=== PATIENT | female | born 1955 | race Hispanic/Latino ===

== ENCOUNTER 2021-11-05 18:02 | Inpatient (IN) | payer OTHER ==
[~2021-11-05] VITALS: Ht 157.5 cm; Wt 63.5 kg
[2021-11-05] MEDS ORDERED: DONNATAL/LIDOCAINE/MAALOX 30 ML SUSP PO SCH (18:15)
[2021-11-05 18:27] LABS: BASOPHILS # (AUTO) 0.1 (0.0-0.1); BASOPHILS % 0.6 % (0.0-1.0); EOSINOPHILS # (AUTO) 0.2 (0.0-0.4); EOSINOPHILS % 1.8 % (0.0-6.0); HEMATOCRIT 42.3 % (34.2-44.1); HEMOGLOBIN 13.6 g/dL (12.0-16.0); LYMPHOCYTES # (AUTO) 2.1 (1.0-3.2); LYMPHOCYTES % 20.6 % (18.0-39.1); MEAN CORPUSCULAR HEMOGLOBIN 31.6 pg (28-32); MEAN CORPUSCULAR HGB CONC 32.2 g/dL (31-35); MEAN CORPUSCULAR VOLUME 98.1 fL (81-99); MONOCYTES # (AUTO) 0.5 (0.2-0.8); MONOCYTES % 5.2 % (4.4-11.3); NEUTROPHILS # (AUTO) 7.3 (2.1-6.9); NEUTROPHILS % 71.4 % (38.7-80.0); PLATELET COUNT 263 x10e3/uL (140-360); RED BLOOD COUNT 4.31 x10e6/uL (3.6-5.1); RED CELL DISTRIBUTION WIDTH 12.8 % (11.7-14.4)
[2021-11-05 18:46] LABS: ALBUMIN 4.1 g/dL (3.5-5.0); ALBUMIN/GLOBULIN RATIO 1.2 (0.8-2.0); ANION GAP 17.6 mmol/L (8-16); CALCIUM 9.4 mg/dL (8.4-10.2); CREATININE, SERUM 0.73 mg/dL (0.57-1.11); POTASSIUM 3.6 mmol/L (3.5-5.1)
[2021-11-05 19:19] LABS: CREATINE KINASE MB 10.3 ng/mL (0-5.0)
[2021-11-05] MEDS ORDERED: Morphine 4mg Syringe 4 MG/ML INJ IV PRN (19:30)
[2021-11-05] MEDS ORDERED: IOPAMIDOL 370 MG/ML 100 ML INFUS..BTL INJ ONE (20:02)
[2021-11-05] MEDS ORDERED: SODIUM CHLORIDE 0.9% 100 ML ONE (20:02)
[2021-11-05] MEDS ORDERED: ENOXAPARIN SOD INJ 60 MG/0.6 ML SYR SC STA (21:37)
[2021-11-05] MEDS ORDERED: ENOXAPARIN SOD INJ 60 MG/0.6 ML SYR SC ONE (21:43)
[2021-11-05] MEDS ORDERED: ASPIRIN 81 MG CHEW TAB PO ONE (23:15)
[2021-11-06] VITALS (8 sets, daily range): BP systolic 116–160; BP diastolic 69–88
[2021-11-06 00:37] LABS: CREATINE KINASE MB 64.3 ng/mL (0-5.0)
[2021-11-06 05:21] LABS: INR 0.87; PROTHROMBIN TIME 12.5 seconds (11.9-14.5)
[2021-11-06 05:22] LABS: PARTIAL THROMBOPLASTIN TIME 30.9 seconds (23.8-35.5)
[2021-11-06 05:35] LABS: CREATINE KINASE MB 71.8 ng/mL (0-5.0)
[2021-11-06] MEDS ORDERED: NITROGLYCERIN 2% OINT 1 GM PKT TOP ONE (06:30)
[2021-11-06] MEDS: NITROGLYCERIN 0.4 MG SUBL SL PRN ×2 (07:54→08:00)
[2021-11-06] MEDS ORDERED: HEPARIN SOD/SOD CHLORIDE 2,000 ML ONE (08:07)
[2021-11-06] MEDS ORDERED: IOPAMIDOL 370 MG/ML 100 ML INFUS..BTL INJ ONE (08:07)
[2021-11-06] MEDS ORDERED: LIDOCAINE HCL 2% LOCAL 20 ML VIAL ONE (08:07)
[2021-11-06] MEDS ORDERED: MIDAZOLAM HCL 2 MG/2 ML VIAL ONE (08:23)
[2021-11-06] MEDS ORDERED: HEPARIN SOD (PORCINE) 1000 UNIT/ML 30ML ONE (08:23)
[2021-11-06] MEDS ORDERED: NITROGLYCERIN/D5W 200 MCG/ML 250 ML ONE (08:24)
[2021-11-06] MEDS ORDERED: FENTANYL CITRATE/PF 100MCG/2 ML INJ ONE (08:24)
[2021-11-06] MEDS ORDERED: SODIUM CHLORIDE 0.9% 1000ML 1,000 ML ONE (08:24)
[2021-11-06] MEDS ORDERED: Morphine 4mg Syringe 4 MG/ML INJ IV PRN (08:45)
[2021-11-06 14:02] LABS: CREATINE KINASE MB 64.5 ng/mL (0-5.0)
[2021-11-06] MEDS ORDERED: ONDANSETRON HCL INJ 2MG/ML 2ML 2 MG/ML VIAL IV PRN (16:30)
[2021-11-06] MEDS: FAMOTIDINE 20 MG TAB PO SCH (16:30)
[2021-11-06] MEDS ORDERED: ONDANSETRON HCL INJ 2MG/ML 2ML 2 MG/ML VIAL ONE (16:39)
[2021-11-06] MEDS ORDERED: ATORVASTATIN 40 MG TAB PO SCH (21:00)
[2021-11-07] VITALS: BP 126/78
[2021-11-07] MEDS ORDERED: ACETAMINOPHEN 325 MG TAB PO PRN (01:00)
[2021-11-07 04:00] VITALS: BP 103/68
[2021-11-07 05:38] LABS: BASOPHILS # (AUTO) 0.1 (0.0-0.1); BASOPHILS % 0.5 % (0.0-1.0); EOSINOPHILS # (AUTO) 0.1 (0.0-0.4); EOSINOPHILS % 1.3 % (0.0-6.0); HEMATOCRIT 38.3 % (34.2-44.1); HEMOGLOBIN 12.1 g/dL (12.0-16.0); LYMPHOCYTES # (AUTO) 3.2 (1.0-3.2); LYMPHOCYTES % 30.9 % (18.0-39.1); MEAN CORPUSCULAR HEMOGLOBIN 31.3 pg (28-32); MEAN CORPUSCULAR HGB CONC 31.6 g/dL (31-35); MEAN CORPUSCULAR VOLUME 99.2 fL (81-99); MONOCYTES # (AUTO) 0.9 (0.2-0.8); MONOCYTES % 9.2 % (4.4-11.3); NEUTROPHILS # (AUTO) 5.9 (2.1-6.9); NEUTROPHILS % 57.8 % (38.7-80.0); PLATELET COUNT 215 x10e3/uL (140-360); RED BLOOD COUNT 3.86 x10e6/uL (3.6-5.1)
[2021-11-07 06:08] LABS: ANION GAP 12.6 mmol/L (8-16); CALCIUM 8.4 mg/dL (8.4-10.2); CREATININE, SERUM 0.67 mg/dL (0.57-1.11); POTASSIUM 3.6 mmol/L (3.5-5.1)
[2021-11-07 07:03] LABS: CHOL/HDL RATIO 4.1 (3.0-3.6)
[2021-11-07 07:23] LABS: THYROID STIMULATING HORMONE 2.443 uIU/mL (0.350-4.940)
[2021-11-07] MEDS: FAMOTIDINE 20 MG TAB PO SCH (07:30)
[2021-11-07 08:00] VITALS: BP 135/70
[2021-11-07] MEDS ORDERED: ASPIRIN 81 MG ENTERIC COATED PO SCH (09:00)
[2021-11-07] MEDS ORDERED: CLOPIDOGREL BISULFATE 75 MG TAB PO SCH (09:00)
[2021-11-07] MEDS ORDERED: METOPROLOL SUCCINATE 25 MG TAB XL PO SCH (09:00)
[2021-11-07 10:54] VITALS: BP 135/70
[2021-11-07 12:00] VITALS: BP 132/75
[2021-11-07] MEDS ORDERED: ECOTRIN81 MG PO (13:02)
[2021-11-07] MEDS ORDERED: LIPITOR20 MG PO (13:03)
[2021-11-07] MEDS ORDERED: PLAVIX75 MG PO (13:03)
[2021-11-07] MEDS ORDERED: TOPROL XL25 MG PO (13:03)
[2021-11-07] MEDS ORDERED: KEFLEX125 MG/5 M PO (13:04)
[2021-11-07] MEDS ORDERED: LOSARTAN POTAS100 MG PO (13:04)
== END 2021-11-07 13:48 | disposition home or self-care (01) | DRG 247 ==
LOC: ER 18:04 → ERHOLD 19:24 → MED/SURG 20:55 → OBSVTOIN 11-06 08:22
PROVIDERS: ADMIT Internal Medicine; ATTEND Internal Medicine
PROC: 027034Z Dilation of Coronary Artery, One Artery with Drug-eluting Intraluminal Device, Percutaneous Approach (ICD-10-PCS; principal; 2021-11-06)
PROC: 4A023N7 Measurement of Cardiac Sampling and Pressure, Left Heart, Percutaneous Approach (ICD-10-PCS; 2021-11-06)
PROC: B2151ZZ Fluoroscopy of Left Heart using Low Osmolar Contrast (ICD-10-PCS; 2021-11-06)
PROC: B2111ZZ Fluoroscopy of Multiple Coronary Arteries using Low Osmolar Contrast (ICD-10-PCS; 2021-11-06)
DX: I21.4 Non-ST elevation (NSTEMI) myocardial infarction (principal); I10 Essential (primary) hypertension; E78.5 Hyperlipidemia, unspecified; Z91.14 Patient's other noncompliance with medication regimen; I25.10 Atherosclerotic heart disease of native coronary artery without angina pectoris; Z20.822 Contact with and (suspected) exposure to COVID-19; I16.0 Hypertensive urgency; E11.65 Type 2 diabetes mellitus with hyperglycemia
CPT/HCPCS: 36415; 71045; 71275; 80048; 80053; 80061; 82550; 82553; 83036; 83880; 84443; 84484; 85025; 85610; 85730; 92920; 92928; 93005; 93306; 93458; 99152; 99153; 99285; C1725; C1760; C1769; C1874; C1887; C1894; G0378; J1644; J1650; J2001; J2250; J2270; J2405; J3010; J7030; J7050; Q9967; U0002

== ENCOUNTER 2021-11-21 11:05 | Inpatient (IN) | payer OTHER ==
[~2021-11-21] VITALS: Ht 157.5 cm; Wt 63.5 kg
[~2021-11-21 11:05] MED LIST: ECOTRIN81 MG PO; KEFLEX125 MG/5 M PO; LIPITOR20 MG PO; LOSARTAN POTAS100 MG PO; PLAVIX75 MG PO; TOPROL XL25 MG PO
[2021-11-21 11:29] LABS: BASOPHILS # (AUTO) 0.1 (0.0-0.1); EOSINOPHILS # (AUTO) 0.3 (0.0-0.4); HEMATOCRIT 42.7 % (34.2-44.1); HEMOGLOBIN 14.1 g/dL (12.0-16.0); LYMPHOCYTES # (AUTO) 2.1 (1.0-3.2); LYMPHOCYTES % 30.8 % (18.0-39.1); MEAN CORPUSCULAR HEMOGLOBIN 31.9 pg (28-32); MEAN CORPUSCULAR VOLUME 96.6 fL (81-99); MONOCYTES # (AUTO) 0.6 (0.2-0.8); MONOCYTES % 7.9 % (4.4-11.3); NEUTROPHILS # (AUTO) 3.9 (2.1-6.9); PLATELET COUNT 368 x10e3/uL (140-360); RED BLOOD COUNT 4.42 x10e6/uL (3.6-5.1); RED CELL DISTRIBUTION WIDTH 12.5 % (11.7-14.4)
[2021-11-21] MEDS ORDERED: NITROGLYCERIN 2% OINT 1 GM PKT TOP ONE (11:30)
[2021-11-21 11:41] LABS: INR 0.86; PROTHROMBIN TIME 12.5 seconds (11.9-14.5)
[2021-11-21 11:42] LABS: PARTIAL THROMBOPLASTIN TIME 29.8 seconds (23.8-35.5)
[2021-11-21 11:50] LABS: ALBUMIN 4.3 g/dL (3.5-5.0); ALBUMIN/GLOBULIN RATIO 1.2 (0.8-2.0); ANION GAP 12.9 mmol/L (8-16); CALCIUM 9.7 mg/dL (8.4-10.2); CREATININE, SERUM 0.66 mg/dL (0.57-1.11); POTASSIUM 3.9 mmol/L (3.5-5.1)
[2021-11-21 11:56] LABS: CREATINE KINASE MB 1.1 ng/mL (0-5.0)
[2021-11-21] MEDS ORDERED: ONDANSETRON HCL INJ 2MG/ML 2ML 2 MG/ML VIAL IV PRN (12:00)
[2021-11-21] MEDS ORDERED: Morphine 2mg Syringe 2 MG/ML SYR IV PRN (12:00)
[2021-11-21] MEDS: NITROGLYCERIN 2% OINT 1 GM PKT TOP SCH ×3 (12:00→23:45)
[2021-11-21 12:42] VITALS: BP 157/103
[2021-11-21] MEDS: ACETAMINOPHEN 325 MG TAB PO PRN ×2 (14:28→20:26)
[2021-11-21 14:34] VITALS: BP 157/103
[2021-11-21 14:39] VITALS: BP 157/103
[2021-11-21 16:00] VITALS: BP 118/78
[2021-11-21] MEDS: ENOXAPARIN SOD INJ 40 MG/0.4 ML SYR SC SCH (16:22)
[2021-11-21] MEDS: FAMOTIDINE 20 MG/2 ML VIAL IV SCH ×2 (16:22→20:08)
[2021-11-21 20:00] VITALS: BP 128/87
[2021-11-21] MEDS: ATORVASTATIN 40 MG TAB PO SCH (20:12)
[2021-11-21 20:28] VITALS: BP 128/87
[2021-11-22] VITALS (12 sets, daily range): BP systolic 111–142; BP diastolic 66–89
[2021-11-22] MEDS: NITROGLYCERIN 2% OINT 1 GM PKT TOP SCH ×3 (05:39→18:00)
[2021-11-22 06:16] LABS: BASOPHILS # (AUTO) 0.1 (0.0-0.1); BASOPHILS % 0.9 % (0.0-1.0); EOSINOPHILS # (AUTO) 0.4 (0.0-0.4); EOSINOPHILS % 4.9 % (0.0-6.0); HEMATOCRIT 40.3 % (34.2-44.1); HEMOGLOBIN 12.9 g/dL (12.0-16.0); LYMPHOCYTES # (AUTO) 2.1 (1.0-3.2); LYMPHOCYTES % 25.4 % (18.0-39.1); MEAN CORPUSCULAR HEMOGLOBIN 31.4 pg (28-32); MEAN CORPUSCULAR VOLUME 98.1 fL (81-99); MONOCYTES # (AUTO) 0.6 (0.2-0.8); MONOCYTES % 6.8 % (4.4-11.3); NEUTROPHILS % 61.6 % (38.7-80.0); PLATELET COUNT 340 x10e3/uL (140-360); RED BLOOD COUNT 4.11 x10e6/uL (3.6-5.1); RED CELL DISTRIBUTION WIDTH 12.5 % (11.7-14.4)
[2021-11-22 06:52] LABS: ALBUMIN 3.9 g/dL (3.5-5.0); ALBUMIN/GLOBULIN RATIO 1.1 (0.8-2.0); ANION GAP 13.7 mmol/L (8-16); CALCIUM 9.5 mg/dL (8.4-10.2); CREATININE, SERUM 0.71 mg/dL (0.57-1.11); POTASSIUM 3.7 mmol/L (3.5-5.1)
[2021-11-22] MEDS ORDERED: HEPARIN SOD (PORCINE) 1000 UNIT/ML 30ML ONE (08:27)
[2021-11-22] MEDS ORDERED: VERAPAMIL HCL 2.5 MG/ML 2 ML VIAL ONE (08:28)
[2021-11-22] MEDS ORDERED: MIDAZOLAM HCL 2 MG/2 ML VIAL ONE ×2 (08:28→12:25)
[2021-11-22] MEDS ORDERED: FENTANYL CITRATE/PF 100MCG/2 ML INJ ONE (08:28)
[2021-11-22] MEDS ORDERED: HEPARIN SOD/SOD CHLORIDE 2,000 ML ONE (08:29)
[2021-11-22] MEDS ORDERED: IOPAMIDOL 370 MG/ML 200 ML INFUS..BTL INJ ONE (08:29)
[2021-11-22] MEDS ORDERED: SODIUM CHLORIDE 0.9% 1000ML 1,000 ML ONE (08:29)
[2021-11-22] MEDS ORDERED: LIDOCAINE HCL 2% LOCAL 20 ML VIAL ONE (08:29)
[2021-11-22] MEDS ORDERED: NITROGLYCERIN/D5W 200 MCG/ML 250 ML ONE (08:29)
[2021-11-22] MEDS: LOSARTAN POTASSIUM 100 MG TAB PO SCH (09:00)
[2021-11-22] MEDS: ASPIRIN 81 MG ENTERIC COATED PO SCH (09:00)
[2021-11-22] MEDS: CLOPIDOGREL BISULFATE 75 MG TAB PO SCH (09:00)
[2021-11-22] MEDS: FAMOTIDINE 20 MG/2 ML VIAL IV SCH ×2 (09:24→20:52)
[2021-11-22] MEDS: ACETAMINOPHEN 325 MG TAB PO PRN (16:30)
[2021-11-22] MEDS: ENOXAPARIN SOD INJ 40 MG/0.4 ML SYR SC SCH (17:00)
[2021-11-22] MEDS: METOPROLOL SUCCINATE 25 MG TAB XL PO SCH (17:12)
[2021-11-22] MEDS: ATORVASTATIN 40 MG TAB PO SCH (20:52)
[2021-11-23] VITALS: BP 127/73
[2021-11-23] MEDS: NITROGLYCERIN 2% OINT 1 GM PKT TOP SCH ×2 (00:43→06:28)
[2021-11-23 04:00] VITALS: BP 130/82
[2021-11-23] MEDS ORDERED: BISACODYL 5 MG TAB EC PO ONE (07:30)
[2021-11-23 07:38] VITALS: BP 130/89
[2021-11-23 07:49] VITALS: BP 130/89
[2021-11-23] MEDS: FAMOTIDINE 20 MG/2 ML VIAL IV SCH (09:01)
[2021-11-23] MEDS: ASPIRIN 81 MG ENTERIC COATED PO SCH (09:01)
[2021-11-23] MEDS: LOSARTAN POTASSIUM 100 MG TAB PO SCH (09:02)
[2021-11-23] MEDS: CLOPIDOGREL BISULFATE 75 MG TAB PO SCH (09:02)
[2021-11-23] MEDS: METOPROLOL SUCCINATE 25 MG TAB XL PO SCH (09:02)
== END 2021-11-23 09:33 | disposition home or self-care (01) | DRG 246 ==
LOC: ER 11:19 → ERHOLD 11:43 → MED/SURG3 12:26
PROVIDERS: ADMIT Internal Medicine; ATTEND Internal Medicine
PROC: 027034Z Dilation of Coronary Artery, One Artery with Drug-eluting Intraluminal Device, Percutaneous Approach (ICD-10-PCS; principal; 2021-11-22)
PROC: 4A023N7 Measurement of Cardiac Sampling and Pressure, Left Heart, Percutaneous Approach (ICD-10-PCS; 2021-11-22)
PROC: B2111ZZ Fluoroscopy of Multiple Coronary Arteries using Low Osmolar Contrast (ICD-10-PCS; 2021-11-22)
PROC: B2151ZZ Fluoroscopy of Left Heart using Low Osmolar Contrast (ICD-10-PCS; 2021-11-22)
DX: I25.110 Atherosclerotic heart disease of native coronary artery with unstable angina pectoris (principal); I21.4 Non-ST elevation (NSTEMI) myocardial infarction; Z95.5 Presence of coronary angioplasty implant and graft; E11.9 Type 2 diabetes mellitus without complications; E78.5 Hyperlipidemia, unspecified; Z87.891 Personal history of nicotine dependence; I11.9 Hypertensive heart disease without heart failure; Z20.822 Contact with and (suspected) exposure to COVID-19
CPT/HCPCS: 36415; 71045; 80053; 82550; 82553; 84484; 85025; 85610; 85730; 92920; 92928; 92978; 93005; 93454; 94799; 99152; 99153; 99284; C1725; C1753; C1769; C1874; C1887; J1644; J1650; J2001; J2250; J3010; J7030; Q9967; U0002